=== PATIENT | male | born 1940 | race Caucasian/White ===

== ENCOUNTER → 2016-09-22 | Outpatient (CLI) | payer BC ==
[~2016-09-22] MED LIST: ASPCH81X PO; ATOR-26 PO; FINA5TAB PO; FLM4 PO; IRON PO; LOSA1TAB38 PO
[2016-09-22 12:41] LABS: BASO % 0.6 %; BASO ABS # 0.03 K/uL (0-0.2); COMPLETE YES; EOS % 5.4 %; HEMATOCRIT 40.4 % (42-52); IG% 0.2 %; LYMPH % 19.7 %; LYMPH ABS # 1.06 K/uL (1.2-3.4); MEAN CELL VOLUME 84.5 fL (80-100); MEAN CORPUSCULAR HEMOGLOBIN 29.9 pg (25-34); MEAN CORPUSCULAR HGB CONC 35.4 g/dl (32-36); MEAN PLATELET VOLUME 11.5 fL (7.4-10.4); MONO % 11.4 %; NEUT % 62.7 %; PLATELET COUNT 156 K/uL (130-400); RED BLOOD COUNT 4.78 M/uL (4.7-6.1); WHITE BLOOD COUNT 5.37 K/uL (4.8-10.8)
[2016-09-22 13:05] LABS: CHOLESTEROL/HDL RATIO 3.1; THYROID STIMULATING HORMONE 1.74 uIu/ml (0.300-4.500)
[2016-09-22 13:14] LABS: ESTIMATED AVERAGE GLUCOSE 105 mg/dl; HA1C FLAG Normal (Normal)
== END | disposition home or self-care (01) ==
LOC: C.LABBFT 07:50
PROVIDERS: ATTEND Internal Medicine
DX: E05.90 Thyrotoxicosis, unspecified without thyrotoxic crisis or storm (principal); R73.09 Other abnormal glucose; D64.9 Anemia, unspecified; I10 Essential (primary) hypertension

== ENCOUNTER → 2017-03-14 | Outpatient (CLI) | payer BC ==
[2017-03-14 12:42] LABS: URINE APPEARANCE CLEAR (CLEAR); URINE BILIRUBIN NEG (NEG); URINE COLOR YELLOW; URINE EPITHELIAL CELL AUTO >30 /lpf (0-5); URINE NITRITE NEG (NEG); URINE SPECIFIC GRAVITY 1.023 (1.000-1.030); UROBILINOGEN NEG (NEG); ZZUR CULT IF INDIC CLEAN CATCH NO
[2017-03-14 12:44] LABS: MANUAL MICROSCOPIC REQUIRED? NO; REVIEW REQ? NO
[2017-03-14 13:00] LABS: ALB/GLOB RATIO 1.1 (0.9-2); ALKALINE PHOSPHATASE 90 U/L (45-117); ALT/SGPT 24 U/L (12-78); AST/SGOT 18 U/L (15-37); BLOOD UREA NITROGEN 15 mg/dl (7-18); BUN/CREATININE RATIO 13.8 (10-20); CALCIUM 8.5 mg/dl (8.5-10.1); CARBON DIOXIDE 25 mmol/L (21-32); CHLORIDE 110 mmol/L (98-107); GLUCOSE 81 mg/dl (70-99); POTASSIUM 3.7 mmol/L (3.5-5.1); SODIUM 141 mmol/L (136-145)
== END | disposition home or self-care (01) ==
LOC: C.LABBFT 10:58
PROVIDERS: ATTEND Internal Medicine
DX: I10 Essential (primary) hypertension (principal); E05.90 Thyrotoxicosis, unspecified without thyrotoxic crisis or storm

== ENCOUNTER → 2017-12-20 | Outpatient (CLI) | payer BC ==
[2017-12-20 12:32] LABS: BASO % 0.5 %; BASO ABS # 0.03 K/uL (0-0.2); EOS % 5.6 %; EOS ABS # 0.32 K/uL (0-0.5); HEMATOCRIT 41.7 % (42-52); HEMOGLOBIN 14.3 g/dL (14.0-18.0); IG# 0.01 K/uL (0.00-0.02); LYMPH % 15.3 %; LYMPH ABS # 0.87 K/uL (1.2-3.4); MEAN CELL VOLUME 84.2 fL (80-100); MEAN CORPUSCULAR HEMOGLOBIN 28.9 pg (25-34); MEAN CORPUSCULAR HGB CONC 34.3 g/dl (32-36); MEAN PLATELET VOLUME 10.6 fL (7.4-10.4); MONO % 10.2 %; MONO ABS # 0.58 K/uL (0.11-0.59); NEUT % 68.2 %; NEUT ABS # 3.86 K/uL (1.4-6.5); PLATELET COUNT 162 K/uL (130-400); RED CELL DISTRIBUTION WIDTH CV 13.5 % (11.5-14.5); RED CELL DISTRIBUTION WIDTH SD 40.7 fL (36.4-46.3); WHITE BLOOD COUNT 5.67 K/uL (4.8-10.8)
[2017-12-20 12:51] LABS: HEMOGLOBIN A1C 5.7 % (4.5-5.6)
== END | disposition home or self-care (01) ==
LOC: C.LABBFT 07:23
PROVIDERS: ATTEND Internal Medicine
DX: I10 Essential (primary) hypertension (principal); E78.00 Pure hypercholesterolemia, unspecified; R73.03 Prediabetes

== ENCOUNTER → 2017-12-27 | Outpatient (CLI) | payer BC | END | disposition home or self-care (01) | LOC: C.LABBFT 08:36 | PROVIDERS: ATTEND Internal Medicine | DX: R53.83 Other fatigue (principal) ==

== ENCOUNTER 2024-05-18 06:12 | Observation (INO) ==
--- NOTE | 2024-04-17 15:13 | PAT Medication Instructions ---
Medication Instructions Date of Service April 17, 2024 Home Medications Medication Instructions Recorded tamsulosin 0.4 mg capsule 0.4 mg PO HS #90 caps 07/13/23 atorvastatin 80 mg tablet 80 mg PO HS #90 tabs 08/26/23 losartan 100 mg tablet 100 mg PO QPM #90 tabs 11/01/23 Medication List: aspirin 81 mg tablet 81 mg PO QPM cholecalciferol (vitamin D3) 25 mcg (1,000 unit) tablet (Vitamin D3) 1,000 unit PO QPM cyanocobalamin (vitamin B-12) 1,000 mcg capsule 1,000 mcg PO QPM tamsulosin 0.4 mg capsule 0.4 mg PO HS atorvastatin 80 mg tablet 80 mg PO HS losartan 100 mg tablet 100 mg PO QPM finasteride 5 mg tablet 5 mg PO QPM fluticasone propionate 50 mcg/actuation nasal spray,suspension 2 spray intranasal QPM zinc 50 mg tablet 50 mg PO QPM MEDICATION INSTRUCTIONS: ASK your prescriber and surgeon aspirin 81 mg tablet 81 mg PO QPM Take evening before surgery cholecalciferol (vitamin D3) 25 mcg (1,000 unit) tablet (Vitamin D3) 1,000 unit PO QPM cyanocobalamin (vitamin B-12) 1,000 mcg capsule 1,000 mcg PO QPM tamsulosin 0.4 mg capsule 0.4 mg PO HS atorvastatin 80 mg tablet 80 mg PO HS losartan 100 mg tablet 100 mg PO QPM finasteride 5 mg tablet 5 mg PO QPM fluticasone propionate 50 mcg/actuation nasal spray,suspension 2 spray intranasal QPM zinc 50 mg tablet 50 mg PO QPM Other Notes Remember: NOTHING TO EAT OR DRINK AFTER MIDNIGHT If you have any questions please call us at [phone] or [phone] or [phone] or [phone]
--- NOTE | 2024-05-03 09:05 | Anesthesiology Consultation ---
Date of Service May 03, 2024 Assessment & Plan (1) Encounter for pre-operative examination: - Infectious disease screening: Per assessment on 05/03/24: No known recent infectious disease contacts or current infectious disease symptoms. - Outpatient joint assessment: Pt currently scheduled for inpatient pathway. If surgeon requests review for outpatient joint pathway, patient is not recommended candidate for outpatient joint program from anesthesia standpoint based on available information. Chart Review Chart Review: Acceptable Risk for Surgery and Patient seen in Pre Admission Testing Teaching & Discussion Pre-Anesthesia Teaching/Discussion Notes: Instructed NPO after midnight before surgery,except medications with 15 cc of water. Medication instructions provided according to the PAT guidelines. History Surgery Operation Date: 05/18/24 09:00 Proposed Procedures p Right Total Knee Arthroplasty - Juan Acosta DO Height/Weight Height: 5 ft 9.5 in Weight: 112.4 kg Allergies Allergy/AdvReac Type Severity Reaction Status Date / Time No Known Drug Allergies Allergy Unknown . Verified 04/17/24 07:27 Medications Home Medications Medication Instructions Recorded Confirmed Last Taken aspirin 81 mg tablet 81 mg PO QPM 02/05/19 04/17/24 01/25/21 cholecalciferol (vitamin D3) 25 1,000 unit PO QPM 01/21/21 04/17/24 01/25/21 mcg (1,000 unit) tablet (Vitamin D3) cyanocobalamin (vitamin B-12) 1,000 mcg PO QPM 04/15/22 04/17/24 Unknown 1,000 mcg capsule tamsulosin 0.4 mg capsule 0.4 mg PO HS #90 caps 07/13/23 04/17/24 Unknown atorvastatin 80 mg tablet 80 mg PO HS #90 tabs 08/26/23 04/17/24 Unknown losartan 100 mg tablet 100 mg PO QPM #90 tabs 11/01/23 04/17/24 Unknown finasteride 5 mg tablet 5 mg PO QPM 04/17/24 04/17/24 Unknown fluticasone propionate 50 2 spray intranasal QPM 04/17/24 04/17/24 Unknown mcg/actuation nasal spray,suspension zinc 50 mg tablet 50 mg PO QPM 04/17/24 04/17/24 Unknown Past Medical History Medical History Arthritis BPH (benign prostatic hyperplasia) Diverticular disease Found on colonoscopy - no problems currently History of anemia History of COVID-19 08/2020: "mild symptoms"/diarrhea, fatigue HTN (hypertension) 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" and indicates this is the reason he takes baby ASA Hypercholesterolemia Per records Hyperthyroidism Per records, patient unsure Euthyroid/TSH WNL 12/2023 labs Obesity Osteoarthritis Prediabetes A1C 12/2023: 5.7% No meds Exercise / Class Metabolic Activity III < 4 Walking/Shop/Light housework (one FS: No CP, + occasional SOB) Past Family History Family History Father Cirrhosis Sister FHx: deafness or hearing loss Breast cancer Cancer Brother Allergies Hypertension Uncle Cancer Son Kidney malignant neoplasm Mother Unknown family medical history Other No family history of adverse response to anesthesia Denies family history of Ovarian cancer Prostate cancer Colorectal cancer Past Surgical History Surgical History History of cataract surgery R/L History of cholecystectomy History of colonoscopy History of elbow surgery left elbow - bursa sac removal History of prostate surgery TUNA procedure History of tooth extraction all teeth removed Hx of arthroscopy of shoulder Patient unsure which side Past Anesthesia History No Hx of Anesthesia Complications and No Family Hx of Anesthesia Complications History of PONV No Hx of PONV and No Hx of Motion Sickness Social History Smoking Status: Never smoker Do You Dip or Chew Tobacco: No Hx Alcohol Use: No Hx Substance Use: No substance use type: does not use Review of Systems Patient denies chest pain, shortness of breath, fever, chills, cough, wheezing, palpitations. Physical Exam Vital Signs BP 130/73 P 67 TEMP 97.9 SP02 97%RA RESP 18 Physical Full cervical extension range of motion. Full TMJ range of motion. TMD 3 finger breaths Mallampati Score II Dentition: upper/lower full dentures Lungs: clear throughout to auscultation Cardiac: regular rate and rhythm, no murmurs noted Spine: normal Carotid arteries: negative bruit Extremities: no LE edema Lab Results Anesthesia Preop Results Results Anesthesia Widget: WBC 6.32 K/ul (4.8-10.8) 05/03/24 Hgb 14.1 g/dl (14.0-18.0) 05/03/24 Hct 40.5 % (42.0-52.0) L 05/03/24 Plt 144 K/uL (130-400) 05/03/24 Na 140 mmol/L (136-145) 05/03/24 K 4.4 mmol/L (3.5-5.1) 05/03/24 Cl 108 mmol/L (98-107) H 05/03/24 CO2 28 mmol/L (21-32) 05/03/24 BUN 14 mg/dl (6-23) 05/03/24 Creat 0.92 mg/dl (0.6-1.4) 05/03/24 Glucose Level 113 mg/dl (70-99(Fasting)) H 05/03/24 PT 10.9 Seconds (9.0-12.0) 05/03/24 PTT 26 Seconds (21-31) 05/03/24 INR 1.0 (0.9-1.1) 05/03/24 Blood Type A Negative 05/03/24 Antibody Screen NEGATIVE 05/03/24 Testing Electrocardiogram Date: 05/03/24 NSR at 66bpm. "Normal ECG" Chest X-Ray Date: 05/03/24 FINDINGS: Lung volumes are normal. Lungs are clear. There is no pneumothorax or pleural effusion. Mild cardiomegaly. Mediastinal contours are normal. There is no evidence for pulmonary edema. IMPRESSION: No acute cardiopulmonary findings. Stress Test Date: 10/13/20 Type: exercise No evidence of inducible ischemia at the workload achieved. > 100% MPHR. 4.6 METS. "Essentially nondiagnostic exercise echocardiogram due to poor exercise tolerance and limited exercise." LV normal in size and systolic function. EF 55%. Moderate cLVH. Mildly dilated aortic root. Mild AI.
[2024-05-18] MEDS ORDERED: ROPIVACAINE 0.5% 5 MG/ML 30 ML VIAL ONE (06:21)
[2024-05-18] MEDS ORDERED: PROPOFOL IV EMULSION 10 MG/ML 20 ML VIAL IV ONE ×2 (06:59→07:02)
[2024-05-18] MEDS ORDERED: fentaNYL citrate PF 100 MCG/2 ML VIAL ONE (07:03)
[2024-05-18] MEDS ORDERED: MIDAZOLAM HCL 1 MG/ML 2ML VIAL ONE (07:03)
[2024-05-18] MEDS ORDERED: LIDOCAINE 2% 2 ML VIAL/AMP(20MG/ML) INFIL ONE (07:03)
[2024-05-18] MEDS: LR 500ML BOLUS, THEN 15ML/HR IV SCH (07:25)
--- NOTE | 2024-05-18 07:27 | History & Physical Bridge Note ---
Date of Service May 18, 2024 History & Physical Bridge Note I have examined the patient, reviewed the History & Physical and in the interval since the performance of the History & Physical I have noted the following changes of clinical significance: no changes noted
[2024-05-18] MEDS: ACETAMINOPHEN 500 MG TAB PO SCH ×2 (07:36→14:17)
[2024-05-18] MEDS: LR 60ML/HR IV SCH (07:36)
[2024-05-18] MEDS: dexAMETHasone**PF** 10 MG/ML VIAL IV SCH (07:36)
[2024-05-18] MEDS: GABAPENTIN 300 MG CAP PO SCH (07:36)
[2024-05-18] MEDS: FAMOTIDINE 20 MG TAB PO SCH (07:36)
[2024-05-18] MEDS ORDERED: ONDANSETRON INJ 2 MG/ML 2 ML VIAL IV PRN ×2 (07:42→11:15)
[2024-05-18] MEDS ORDERED: ePHEDrine sulfate 50 MG/ML AMP IV PRN (07:42)
[2024-05-18] MEDS ORDERED: ATROPINE SULFATE 0.1 MG/ML 10ML SYR IV PRN (07:42)
[2024-05-18] MEDS ORDERED: fentaNYL citrate PF 100 MCG/2 ML VIAL IV PRN (07:42)
[2024-05-18] MEDS ORDERED: HYDROmorphone INJ 1 MG/ML SYRINGE IV PRN (07:42)
[2024-05-18] MEDS: TRANEXAMIC ACID 1,000 MG **IV Pre-op IV SCH (07:47)
[2024-05-18] MEDS: ceFAZolin 2000MG 2,000 MG/15 ML SYR IV SCH ×2 (08:00→16:43)
[2024-05-18] MEDS: ROPIV 0.5% 246mg, Ketorolac 30mg, EPINEPHrine 0.5mg in NSS INFIL SCH (08:33)
[2024-05-18] MEDS: ORTHO JOINT ANESTHETIC ONE (08:56)
[2024-05-18] MEDS: TRANEXAMIC ACID 1,000 MG **IV Intra-op IV SCH (09:11)
[2024-05-18] MEDS ORDERED: ONDANSETRON INJ 2 MG/ML 2 ML VIAL ONE (09:14)
--- NOTE | 2024-05-18 09:14 | Operative Report ---
PG Post Operative Report Pre & Post Diagnosis Operation Date: 05/18/24 08:00 Pre-Op Diagnosis: Degenerative Arthritis Right Knee Post-Op Diagnosis: Degenerative Arthritis Right Knee I identified the patient and participated in the time-out.: Yes Procedure Operation Date: 05/18/24 08:00 Actual Procedures p Right Total Knee Arthroplasty(Right) - Juan Acosta DO Surgeon Juan Acosta DO Coffee Grinder Juan Rosado PA-C Estimated Blood Loss 30 Findings Consistent with Post-Op Diagnosis Specimens Right femoral and tibial bone Description of Procedure Implants used: I used a Tyler Persona total knee arthroplasty system with a size 9 standard PS femur, F tibia, 34 oval patella, and a size 10 CPS polyethylene bearing. All components were cemented in place with Biomet cement. Omero isai [facility] for the above procedure. He was seen in the preoperative holding area and the operative extremity was identified and signed. He was given a preoperative antibiotic, TXA, a spinal anesthetic and an adductor nerve block. He was taken back to the operating room and laid on the table in supine position. He was given basic sedation. The operative knee was then prepped and draped in sterile fashion. A timeout was done, and the patient and the operative extremity was properly identified. A midline incision was made directly over the patella. Dissection was taken down to the extensor mechanism. A mid vastus arthrotomy was used. The medial retinaculum was released and the fat pad was mostly excised. The knee was flexed and the ACL, PCL, and meniscus were removed. A drill was sent down the center of the femoral canal followed by an intramedullary brody. Off that brody a distal femoral cutting block was placed. 9 mm was resected off the distal femur at 5 of valgus. A posterior referencing AP sizing guide was then placed on the distal femur. The femur measured to be a size 9. 2 drill holes were placed in 3 of external rotation. A 4-in-1 cutting block was then impacted into place. Anterior, posterior, and chamfer cuts were then made. The proximal tibia was then exposed. An external tibial alignment guide was placed. A tibial cut guide was then anchored in place and the proximal tibia was then resected. The posterior aspect of the knee was then opened up and any additional meniscus fragments and osteophytes were removed. The tibia measured to be a size F. The tibial plate was then placed in the appropriate rotation and the tibia was drilled and punched. Trial components were then placed. I used a size 10 CPS polyethylene insert. The knee was brought through a full range of motion and felt to be stable. The peg holes for the femoral component were then drilled. The patella was then everted and 9 mm was resected off the posterior aspect of the patella. The patella measured to be a size 34 oval. 3 peg holes were then drilled. A trial patella was placed. The knee was once again brought through a full range of motion and felt to be stable. Trial components were then removed. The surrounding soft tissues were injected with 100 cc of an orthopedic pain control cocktail. All components were then cemented into place with Biomet cement. The final polyethylene insert was then snapped into place. Once cement was dry the tourniquet was deflated. Hemostasis was obtained. A dilute betadyne lavage was then done for 3 minutes. The joint was then irrigated with normal saline solution. The mid vastus arthrotomy was then closed with #1 Vicryl suture. The skin was closed with 2-0 Vicryl, 3-0V lock suture, and jaime. A soft compressive dressing was placed. He was then transferred to a hospital bed and taken to the postanesthesia care unit in stable condition. He tolerated the procedure well. Juan Rosado PA-C, was present for the entire procedure. He was critical for patient positioning, prepping, draping, retraction exposure, wound closure and application of sterile dressing. I attest to the content of the Intraoperative Record and any orders documented therein. Any exceptions are noted below.
--- NOTE | 2024-05-18 10:43 | Anesthesiology Progress Note ---
Date of Service May 18, 2024 Anesthesia Post Procedure Vital Signs Vital Signs: Temp Pulse Pulse Resp BP Pulse Ox O2 Del Method 05/18/24 10:30 62 12 121/58 L 96 Nasal Cannula 05/18/24 10:10 36.8 C 69 17 122/56 L 98 Nasal Cannula 05/18/24 10:00 68 14 128/62 97 Nasal Cannula 05/18/24 09:50 68 14 122/62 96 Room Air 05/18/24 09:40 67 16 126/61 96 Oxymask 05/18/24 09:33 37 C 69 16 114/56 L 98 Oxymask 05/18/24 07:10 36.9 C 78 20 127/74 94 Room Air O2 Flow Rate 05/18/24 10:30 2 05/18/24 10:10 2 05/18/24 10:00 2 05/18/24 09:50 05/18/24 09:40 3 05/18/24 09:33 6 05/18/24 07:10 Transfer of Care Handoff Completed per policy Notes Mental Status: alert / awake / arousable and participated in evaluation Patient Amnestic to Procedure: Yes Nausea / Vomiting: adequately controlled Pain: adequately controlled Airway Patency, RR, SpO2: stable & adequate BP & HR: stable & adequate Hydration State: stable & adequate Anesthetic Complications: no major complications apparent and Pt Satisfied with anesthetic care
[2024-05-18] MEDS: SODIUM CHLORIDE 0.9% 1,000 ML IV SCH (11:10)
[2024-05-18] MEDS ORDERED: bisacodyL 10 MG SUPP PR PRN (11:15)
[2024-05-18] MEDS ORDERED: MAGNESIUM HYDROXIDE SUSP 30 ML UDC PO PRN (11:15)
[2024-05-18] MEDS ORDERED: HYDROmorphone INJ 0.5 MG/0.5 ML SYR IV PRN (11:15)
[2024-05-18] MEDS ORDERED: METOCLOPRAMIDE HCL INJ 5 MG/ML 2 ML VIAL IV PRN (11:15)
[2024-05-18] MEDS ORDERED: NALOXONE HCL 0.4 MG/1 ML VIAL/CARP IV PRN (11:15)
--- NOTE | 2024-05-18 12:48 | XRay Report ---
XR knee RT 1 or 2V routine CLINICAL HISTORY: Postoperative evaluation. COMPARISON: Right knee radiographs April 25, 2024. FINDINGS: Alignment of the total right knee arthroplasty is anatomic. There is no periprosthetic fra cture or unexpected radiopaque foreign body. There are skin jaime. IMPRESSION: Expected findings following total right knee arthroplasty. ACT 112: Negative or not required by law. Electronically signed by: Elroy Negron M.D. 05/18/2024 12:47 PM
[2024-05-18] MEDS: ASPIRIN 81 MG ECTAB PO SCH (20:31)
[2024-05-18] MEDS: TAMSULOSIN HCL 0.4 MG CAP PO SCH (20:31)
[2024-05-18] MEDS: LOSARTAN POTASSIUM 50 MG TAB PO SCH (20:31)
[2024-05-18] MEDS: FINASTERIDE 5 MG TAB PO SCH (20:32)
[2024-05-18] MEDS: FLUTICASONE PROPIONATE NA SPR 16 GM BTL SCH (20:32)
[2024-05-18] MEDS: ATORVASTATIN 40 MG TAB PO SCH (20:32)
[2024-05-18] MEDS: DOCUSATE SODIUM 100 MG CAP PO SCH (20:33)
[2024-05-18] MEDS: SENNA 8.6 MG TAB PO SCH (20:34)
[2024-05-19 03:02] VITALS: PULSE 65
--- NOTE | 2024-05-19 06:56 | Orthopedic Progress Note ---
Date of Service May 19, 2024 Assessment & Plan (1) Status post right knee replacement: Overall he is doing very well. He is not having much pain in the right knee. He will be seen by physical therapy today for ambulation and range of motion exercises. He is on aspirin for DVT prophylaxis. The nursing staff can change his dressing after physical therapy. He can be discharged home later today. He will follow-up with orthopedics in 2 weeks. Chris Jamil was seen and examined at bedside this morning. Overall he is doing very well. He is not having much pain in the right knee. He has been up and ambulating to the bathroom. He has no complaints.. Review of Systems All systems reviewed & are unremarkable except as noted in HPI & below. Physical Exam On physical examination of the right knee, the dressing is clean and dry. His leg is out full extension. He has active dorsiflexion plantarflexion of his right ankle.. Results & Data Results & Data Laboratory Results . Diagnostic Findings Postoperative x-rays of the right knee show the prosthesis to be in anatomic alignment without any evidence of fracture complication, or loosening.. PG Care Time/CCT Total # of Minutes Spent Total Time Spent with Patient: Total time spent is greater than 50% in coordination of care (as documented) at patient's floor/unit and/or counseling patient: Coding Level of Care Code 66955 Post Operative Follow-Up Diagnoses Status post right knee replacement Z96.651
--- NOTE | 2024-05-19 06:56 | Discharge Summary ---
Date of Service May 19, 2024 Principal Diagnosis Same as "Discharge Diagnosis" noted below under Discharge Instructions. Discharge Exam On physical examination of the right knee, the dressing is clean and dry. His leg is out full extension. He has active dorsiflexion plantarflexion of his right ankle.. Discharge Data Procedures Performed Operation Date: 05/18/24 08:00 Actual Procedures p Right Total Knee Arthroplasty(Right) - Juan Acosta DO Ordered Studies 05/18/24 05:00 US - OR guided needle placemen Routine Hospital Course (1) Status post right knee replacement: On May 18, 2024 Omero arrived at [facility] and underwent a right knee replacement without complication. He had a spinal anesthetic. Postoperatively he was started on aspirin for DVT prophylaxis and transferred to the general orthopedic floors. His hospital course was uneventful. On postop day #1, his vital signs were stable and his pain was well-controlled. He was able to participate well with physical therapy doing ambulation and range of motion exercises. He was then discharged to home. He will follow-up with orthopedics in 2 weeks. PG Care Time/CCT Total # of Minutes Spent Total Time Spent with Patient: Total time spent is greater than 50% in coordination of care (as documented) at patient's floor/unit and/or counseling patient: Discharge Plan Discharge Items Patient Disposition: Home - Self-Care Reason For Visit: Degenerative Arthritis Right Knee Discharge Diagnosis: Right knee replacement Activity: Per Instructions section Non-emergency contact: Surgeon Call non-emergency contact if: your wound has increased redness and your wound has increased drainage Follow-up/Referrals: Cuba Villegas MD [Primary Care Provider] - Diet: Regular Addtl Attending Provider Instructions: Activity and Therapy Recommendations: * If you are using [facility] then therapy will be provided at your home until they feel you have accomplished all of your goals. * If you are using [facility] then Physical Therapy will be provided until they feel you are ready to start Outpatient Physical Therapy. * If you are not using home therapy then Outpatient Physical Therapy should start about 3-5 days from your day of surgery. Therapy will last about 6-10 weeks * It is important not to put a pillow under your knee when you are relaxing or sleeping. It is just as important to make sure you are getting your knee perfectly straight as it is to regain your knee bend. * You were shown a series of exercises in the hospital. Do these exercises three times each day including the exercises you were shown in physical therapy. * Get up and walk several times each day. For the first four weeks, try not to stand or walk for more than one hour at a time. If you do stand or walk for more than one hour, you will not hurt anything, but your leg will likely swell. * As you feel comfortable, you may change from the walker or crutches to a cane and then to independent walking. Medications: * Narcotic You will likely be sent home from the hospital with a prescription for the narcotic pain medication that worked best throughout your stay. * Cefadroxil -take the antibiotic twice a day for 10 days to help prevent infection. * Aspirin Most patients will be required to take Aspirin 81mg twice a day for 6 weeks after surgery. This is obtained [id number] and a prescription is not necessary. * Other medications may be prescribed for specific circumstances. If you have any questions, please call the office at . * Resume previous home medications unless otherwise instructed TEDs/Elastic Stockings: The white elastic stockings help limit swelling and prevent blood clots from forming in your legs.~ The more you wear them, the more they work. Wear them for six weeks. Dressing Care: The dressing can be changed after physical therapy on postop day #1. Daily dry dressing changes for a few days, especially if the incision is still draining some. If the incision is not draining then you may leave the jaime open to air. If there is a little bit of drainage or if the jaime are getting stuck on your clothing then cover the incision with a dry dressing. The jaime will be removed at your 2 week follow-up appointment. Showering: You may shower 5 days from the day of surgery as long as the incision is no longer draining. You may shower with the jaime exposed. Let soapy water run over the jaime and pat them dry. Do not scrub or soak the incision. Diet: You may resume your previous diet. Things To Watch For: * Drainage from the incision site that occurs more than one week after your surgery. * Increased redness at the incision site. * Fever above 102 degrees Fahrenheit. * Unusual chest pain or shortness of breath. * Call [facility] at with any of the above problems Follow-Up Visit: Follow-up with Dr. Acosta's PA (Juan Rosado) 2-3 weeks after your day of surgery. He will remove your jaime and answer any questions. If you have any additional questions or concerns, Dr Acosta is usually in the office at the same time and will be available An appointment was probably scheduled when you signed-up for surgery in the office. If you have any questions call Office Instructions: More detailed instructions as well as Frequently Asked Questions were provided in a folder by our office when you signed-up for surgery. Please review these instructions when you get home. If you have any further questions or concerns, please feel free to call the office at [phone] Pending Studies at Discharge: No Stand-Alone Forms: My [facility], Smoking Cessation Medications and DC Order Prescriptions: New oxycodone 5 mg Tablet 5 mg PO Q4H PRN (Reason: pain) Qty: 30 0RF cefadroxil 500 mg capsule 500 mg PO BID 10 Days Qty: 20 0RF aspirin 81 mg Tablet,Delayed Release (Dr/Ec) 81 mg PO BID 42 Days Qty: 0 0RF Continued tamsulosin 0.4 mg capsule 0.4 mg PO HS Qty: 90 3RF atorvastatin 80 mg tablet 80 mg PO HS Qty: 90 3RF losartan 100 mg tablet 100 mg PO QPM Qty: 90 3RF cyanocobalamin (vitamin B-12) 1,000 mcg capsule 1,000 mcg PO QPM aspirin 81 mg tablet 81 mg PO QPM cholecalciferol (vitamin D3) [Vitamin D3] 25 mcg (1,000 unit) Tablet 1,000 unit PO QPM zinc 50 mg Tablet 50 mg PO QPM fluticasone propionate 50 mcg/actuation spray,suspension 2 spray intranasal QPM finasteride 5 mg tablet 5 mg PO QPM Discharge Orders: Discharge Order (Routine); Ordered 05/19/24 Ordered By: Juan Acosta Admission Data Admit Date/Time: 05/18/24 09:35 Attending Provider: Juan Acosta Admit Provider: Juan Acosta Primary Care Provider: Cuba Villegas
[2024-05-19 07:30] VITALS: BP 125/65; RESP 16; TEMP 98.4; O2SAT 98
[2024-05-19] MEDS: MULTIVITAMIN TAB PO SCH (08:44)
[2024-05-19] MEDS: dexAMETHasone 4 MG TAB PO SCH (08:44)
[2024-05-19] MEDS: oxyCODONE HCL IR 5 MG TAB (IMMEDIATE RELEASE) PO PRN (08:49)
== END 2024-05-19 11:26 | disposition home or self-care (01) ==
LOC: 3N 06:12 → ASU 06:12